=== PATIENT | male | born 1990 | race Caucasian/White ===

== ENCOUNTER 2017-02-22 08:49 | Emergency (ER) | payer OTHER ==
[~2017-02-22] VITALS: Ht 182.9 cm; Wt 77.1 kg
[~2017-02-22 08:49] MED LIST: ALBU90I INH; ALBU90OI INH; AZIT250 PO; CODGUAEL PO; Flexeril 10 mg10 MG PO; Inderal40 MG PO; METPRE4DP PO; Monodox100 MG PO; NAPR500 PO; Naprosyn500 MG PO; Norco 5-325 Ta1 EACH PO; OXYACE5T PO; PROM25 PO; Percocet 5-3251 EACH PO; SPACE CHAMBER1 EACH MC
[2017-02-22 09:50] LABS: BASOPHILS ABSOLUTE AUTO 0.02 K/mm3 (0.00-0.23); BASOPHILS PERCENT AUTO 0 % (0-2); EOSINOPHILS ABSOLUTE AUTO 0.05 K/mm3 (0.00-0.68); EOSINOPHILS PERCENT AUTO 1 % (0-6); Hematocrit 46.1 % (37.0-53.0); Hemoglobin 16.5 g/dL (13.5-17.5); IMMATURE GRAN ABSOLUTE AUTO 0.01 K/mm3 (0.00-0.10); IMMATURE GRAN PERCENT AUTO 0 % (0-1); LYMPHOCYTES ABSOLUTE AUTO 1.09 K/mm3 (0.84-5.20); LYMPHOCYTES PERCENT AUTO 10 % (21-46); MONOCYTES ABSOLUTE AUTO 0.93 K/mm3 (0.16-1.47); MONOCYTES PERCENT AUTO 8 % (4-13); Mean Corpuscular HGB 37.2 pg (26.0-34.0); Mean Corpuscular HGB Conc 35.8 g/dL (31.5-36.5); Mean Corpuscular Volume 104 fL (80-100); Mean Platelet Volume 11.2 fL (9.1-12.4); NEUTROPHILS ABSOLUTE AUTO 8.95 K/mm3 (1.96-9.15); NEUTROPHILS PERCENT AUTO 81 % (41-73); Platelet Count 181 K/mm3 (150-400); RDW Coefficient Variation 12.9 % (11.7-14.2); RDW Standard Deviation 49.2 fL (35.1-46.3); Red Blood Cell Count 4.43 M/mm3 (4.30-5.90); White Blood Cell Count 11.05 K/mm3 (4.00-11.30)
[2017-02-22 09:57] LABS: Alanine Aminotransfer (ALT/SGP 58 U/L (12-78); Albumin, Blood 3.5 g/dL (3.4-5.0); Albumin/Globulin Ratio 0.9 (0.8-1.8); Alk Phos 106 U/L (50-136); Anion Gap 7 mmol/L (6-16); Aspartate Aminotrans (AST/SGOT 47 U/L (12-37); Blood Urea Nitrogen 3 mg/dL (8-24); Bun/Creatinine Ratio 4.3 (12.0-20.0); CO2, Blood 32 mmol/L (21-32); Chloride, Blood 97 mmol/L (98-108); Creatinine, Blood 0.69 mg/dL (0.60-1.20); Globulin, Blood 3.8 g/dL (2.2-4.0); Glomerular Filtration Rate >60 (60-); Glucose, Blood 94 mg/dL (70-99); Sodium, Blood 136 mmol/L (136-145); Total Protein, Blood 7.3 g/dL (6.4-8.2)
[2017-02-22 10:07] LABS: Influenza A Negative (NEGATIVE); Influenza B Negative (NEGATIVE)
[2017-02-22] MEDS ORDERED: Zofran Odt4 MG PO (10:44)
== END 2017-02-22 11:05 | disposition home or self-care (01) ==
LOC: ER 08:49
PROVIDERS: Emergency Medicine
DX: E86.0 Dehydration (principal); E87.6 Hypokalemia; R11.2 Nausea with vomiting, unspecified; R19.7 Diarrhea, unspecified; J45.909 Unspecified asthma, uncomplicated; I10 Essential (primary) hypertension; F17.200 Nicotine dependence, unspecified, uncomplicated
CPT/HCPCS: 36415; 71020; 80053; 85025; 87804; 96361; 96374; 99283; J1100; J2405; J7030

== ENCOUNTER 2017-03-10 03:29 | Observation (INO) | payer OTHER ==
[~2017-03-10] VITALS: Ht 177.8 cm; Wt 59.0 kg
[~2017-03-10 03:29] MED LIST changes: +Zofran Odt4 MG PO
[2017-03-10 04:00] LABS: BASOPHILS ABSOLUTE AUTO 0.06 K/mm3 (0.00-0.23); BASOPHILS PERCENT AUTO 1 % (0-2); EOSINOPHILS ABSOLUTE AUTO 0.13 K/mm3 (0.00-0.68); EOSINOPHILS PERCENT AUTO 3 % (0-6); Hematocrit 51.3 % (37.0-53.0); Hemoglobin 18.4 g/dL (13.5-17.5); IMMATURE GRAN ABSOLUTE AUTO 0.01 K/mm3 (0.00-0.10); IMMATURE GRAN PERCENT AUTO 0 % (0-1); LYMPHOCYTES ABSOLUTE AUTO 1.91 K/mm3 (0.84-5.20); LYMPHOCYTES PERCENT AUTO 40 % (21-46); MONOCYTES ABSOLUTE AUTO 0.39 K/mm3 (0.16-1.47); MONOCYTES PERCENT AUTO 8 % (4-13); Mean Corpuscular HGB 38.3 pg (26.0-34.0); Mean Corpuscular HGB Conc 35.9 g/dL (31.5-36.5); Mean Corpuscular Volume 107 fL (80-100); Mean Platelet Volume 10.4 fL (9.1-12.4); NEUTROPHILS ABSOLUTE AUTO 2.31 K/mm3 (1.96-9.15); NEUTROPHILS PERCENT AUTO 48 % (41-73); Platelet Count 185 K/mm3 (150-400); RDW Coefficient Variation 14.6 % (11.7-14.2); RDW Standard Deviation 57.2 fL (35.1-46.3); Red Blood Cell Count 4.81 M/mm3 (4.30-5.90); White Blood Cell Count 4.81 K/mm3 (4.00-11.30)
[2017-03-10 04:39] LABS: Alanine Aminotransfer (ALT/SGP 125 U/L (12-78); Albumin, Blood 3.9 g/dL (3.4-5.0); Alk Phos 179 U/L (50-136); Anion Gap 12 mmol/L (6-16); Aspartate Aminotrans (AST/SGOT 270 U/L (12-37); Bilirubin, Total 1.7 mg/dL (0.1-1.0); Blood Urea Nitrogen 3 mg/dL (8-24); Bun/Creatinine Ratio 4.4 (12.0-20.0); CO2, Blood 21 mmol/L (21-32); Calcium, Blood 8.4 mg/dL (8.5-10.1); Chloride, Blood 105 mmol/L (98-108); Creatinine, Blood 0.68 mg/dL (0.60-1.20); Ethanol (Alcohol), Blood, Med 256 mg/dL; Glomerular Filtration Rate >60 (60-); Glucose, Blood 95 mg/dL (70-99); Potassium, Blood 4.2 mmol/L (3.5-5.5); Salicylate 2.6 mg/dL (2.8-20.0); Sodium, Blood 138 mmol/L (136-145); Total Protein, Blood 7.9 g/dL (6.4-8.2)
[2017-03-10 04:48] LABS: Acetaminophen, Random <2.0 ug/mL (10.0-30.0)
[2017-03-10] MEDS ORDERED: Zofran Odt4 MG PO (04:49)
[2017-03-10 05:20] LABS: Source, Urine Clean Catch
[2017-03-10 05:25] LABS: Blood, Urine 1+ (Neg); Glucose Qualitative, Urine Neg (Neg); Ketones, Urine 1+ (Neg); Leukocyte Esterase, Urine 1+ (Neg); Nitrite, Urine Neg (Neg); Protein, Urine 1+ (Neg); Specific Gravity, Urine 1.025 (1.003-1.022); Urobilinogen, Urine 2+ (Normal)
[2017-03-10 05:33] LABS: Appearance, Urine Hazy (Clear); Bilirubin, Urine 1+ (Neg); Color, Urine Amber (P-Yellow)
[2017-03-10 05:35] LABS: White Blood Cells, Urine 0-2 /hpf (0-5)
[2017-03-10 05:36] LABS: Bacteria Few /hpf; Red Blood Cells, Urine 0-2 /hpf (0-2); Squamous Epithelial Cells Few /hpf (Few)
[2017-03-10 05:45] LABS: U Amphetamine Screen Not Detected; U Barbituate Screen Not Detected; U Benzodiazapine Screen Not Detected; U Buprenorphine Screen Not Detected; U Cannabinoids Screen Not Detected; U Cocaine Screen Not Detected; U Methadone Screen Not Detected; U Methamphetamine Screen Not Detected; U Opiates Screen Not Detected; U Oxycodone Screen Not Detected; U Phencyclidine Screen Not Detected; U Propoxyphene Screen Not Detected
== END 2017-03-10 11:07 | disposition home or self-care (01) ==
LOC: ER 03:29 → EOR 03:30
PROVIDERS: Emergency Medicine
DX: F32.9 Major depressive disorder, single episode, unspecified (principal); R45.851 Suicidal ideations; F10.229 Alcohol dependence with intoxication, unspecified; Y90.8 Blood alcohol level of 240 mg/100 ml or more; F17.200 Nicotine dependence, unspecified, uncomplicated; J45.909 Unspecified asthma, uncomplicated; Z98.890 Other specified postprocedural states; Z79.899 Other long term (current) drug therapy
CPT/HCPCS: 36415; 80053; 81001; 84443; 85025; 87086; 99285; G0378; G0480

== ENCOUNTER 2017-03-14 21:48 | Observation (INO) | payer OTHER ==
[~2017-03-14] VITALS: Ht 170.2 cm; Wt 59.0 kg
[2017-03-15 00:59] LABS: BASOPHILS ABSOLUTE AUTO 0.04 K/mm3 (0.00-0.23); BASOPHILS PERCENT AUTO 1 % (0-2); EOSINOPHILS ABSOLUTE AUTO 0.07 K/mm3 (0.00-0.68); EOSINOPHILS PERCENT AUTO 2 % (0-6); Hematocrit 50.2 % (37.0-53.0); IMMATURE GRAN ABSOLUTE AUTO 0.01 K/mm3 (0.00-0.10); IMMATURE GRAN PERCENT AUTO 0 % (0-1); LYMPHOCYTES ABSOLUTE AUTO 1.48 K/mm3 (0.84-5.20); LYMPHOCYTES PERCENT AUTO 32 % (21-46); MONOCYTES ABSOLUTE AUTO 0.51 K/mm3 (0.16-1.47); MONOCYTES PERCENT AUTO 11 % (4-13); Mean Corpuscular HGB 38.2 pg (26.0-34.0); Mean Corpuscular HGB Conc 35.9 g/dL (31.5-36.5); Mean Corpuscular Volume 107 fL (80-100); Mean Platelet Volume 11.5 fL (9.1-12.4); NEUTROPHILS ABSOLUTE AUTO 2.55 K/mm3 (1.96-9.15); NEUTROPHILS PERCENT AUTO 55 % (41-73); Platelet Count 110 K/mm3 (150-400); RDW Coefficient Variation 13.5 % (11.7-14.2); RDW Standard Deviation 54.4 fL (35.1-46.3); Red Blood Cell Count 4.71 M/mm3 (4.30-5.90); White Blood Cell Count 4.66 K/mm3 (4.00-11.30)
[2017-03-15 01:17] LABS: Alanine Aminotransfer (ALT/SGP 174 U/L (12-78); Albumin, Blood 3.8 g/dL (3.4-5.0); Alk Phos 159 U/L (50-136); Anion Gap 12 mmol/L (6-16); Aspartate Aminotrans (AST/SGOT 314 U/L (12-37); Bilirubin, Total 2.6 mg/dL (0.1-1.0); Blood Urea Nitrogen 4 mg/dL (8-24); Bun/Creatinine Ratio 6.5 (12.0-20.0); CO2, Blood 25 mmol/L (21-32); Calcium, Blood 8.8 mg/dL (8.5-10.1); Chloride, Blood 102 mmol/L (98-108); Creatinine, Blood 0.61 mg/dL (0.60-1.20); Free Thyroxine 0.88 ng/dL (0.70-1.60); Glomerular Filtration Rate >60 (60-); Glucose, Blood 89 mg/dL (70-99); Potassium, Blood 3.9 mmol/L (3.5-5.5); Salicylate <1.7 mg/dL (2.8-20.0); Sodium, Blood 139 mmol/L (136-145); Total Protein, Blood 7.8 g/dL (6.4-8.2)
[2017-03-15 01:45] LABS: Ethanol (Alcohol), Blood, Med 344 mg/dL
[2017-03-15 01:46] LABS: Acetaminophen, Random <2.0 ug/mL (10.0-30.0)
== END 2017-03-15 15:38 | disposition home or self-care (01) ==
LOC: ER 21:48 → EOR 21:49
PROVIDERS: Emergency Medicine
DX: R45.851 Suicidal ideations (principal); F10.129 Alcohol abuse with intoxication, unspecified; I10 Essential (primary) hypertension; J45.909 Unspecified asthma, uncomplicated; J98.19 Other pulmonary collapse; F17.210 Nicotine dependence, cigarettes, uncomplicated; Y90.8 Blood alcohol level of 240 mg/100 ml or more
CPT/HCPCS: 36415; 80053; 84439; 84443; 85025; 99285; G0378; G0480

== ENCOUNTER 2017-03-31 12:48 | Inpatient (IN) | payer OTHER ==
[~2017-03-31] VITALS: Ht 167.6 cm; Wt 58.3 kg
[2017-03-31] MEDS ORDERED: Percocet 10-321 EACH PO (16:31)
[2017-03-31 17:26] LABS: BASOPHILS ABSOLUTE AUTO 0.07 K/mm3 (0.00-0.23); BASOPHILS PERCENT AUTO 1 % (0-2); EOSINOPHILS PERCENT AUTO 0 % (0-6); Hemoglobin 17.8 g/dL (13.5-17.5); IMMATURE GRAN ABSOLUTE AUTO 0.05 K/mm3 (0.00-0.10); IMMATURE GRAN PERCENT AUTO 1 % (0-1); LYMPHOCYTES ABSOLUTE AUTO 1.31 K/mm3 (0.84-5.20); LYMPHOCYTES PERCENT AUTO 15 % (21-46); MONOCYTES ABSOLUTE AUTO 0.75 K/mm3 (0.16-1.47); MONOCYTES PERCENT AUTO 8 % (4-13); Mean Corpuscular HGB 37.4 pg (26.0-34.0); Mean Corpuscular HGB Conc 34.9 g/dL (31.5-36.5); Mean Corpuscular Volume 107 fL (80-100); Mean Platelet Volume 10.4 fL (9.1-12.4); NEUTROPHILS ABSOLUTE AUTO 6.76 K/mm3 (1.96-9.15); NEUTROPHILS PERCENT AUTO 76 % (41-73); Platelet Count 234 K/mm3 (150-400); RDW Coefficient Variation 12.3 % (11.7-14.2); RDW Standard Deviation 49.7 fL (35.1-46.3); Red Blood Cell Count 4.76 M/mm3 (4.30-5.90); White Blood Cell Count 8.94 K/mm3 (4.00-11.30)
[2017-03-31 17:44] LABS: Anion Gap 14 mmol/L (6-16); Blood Urea Nitrogen 4 mg/dL (8-24); Bun/Creatinine Ratio 7.1 (12.0-20.0); CO2, Blood 21 mmol/L (21-32); Calcium, Blood 9.7 mg/dL (8.5-10.1); Chloride, Blood 100 mmol/L (98-108); Creatinine, Blood 0.57 mg/dL (0.60-1.20); Glomerular Filtration Rate >60 (60-); Glucose, Blood 92 mg/dL (70-99); Potassium, Blood 4.5 mmol/L (3.5-5.5); Sodium, Blood 135 mmol/L (136-145)
[2017-03-31 19:51] LABS: Ethanol (Alcohol), Blood, Med 95 mg/dL
[2017-03-31 20:03] LABS: International Normalized Ratio 1.03; Prothrombin Time Results 10.7 Sec (9.7-11.5)
[2017-04-01 00:01] LABS: Influenza A Negative (NEGATIVE); Influenza B Negative (NEGATIVE)
[2017-04-01 00:10] LABS: U Amphetamine Screen Not Detected; U Barbituate Screen Not Detected; U Benzodiazapine Screen Not Detected; U Buprenorphine Screen Not Detected; U Cannabinoids Screen DETECTED; U Cocaine Screen Not Detected; U Methadone Screen Not Detected; U Methamphetamine Screen Not Detected; U Opiates Screen DETECTED; U Oxycodone Screen DETECTED; U Phencyclidine Screen Not Detected; U Propoxyphene Screen Not Detected
[2017-04-01 03:44] LABS: Hematocrit 44.3 % (37.0-53.0); Hemoglobin 15.5 g/dL (13.5-17.5); Mean Corpuscular HGB 37.3 pg (26.0-34.0); Mean Corpuscular Volume 107 fL (80-100); Mean Platelet Volume 11.6 fL (9.1-12.4); Platelet Count 195 K/mm3 (150-400); RDW Coefficient Variation 12.5 % (11.7-14.2); RDW Standard Deviation 49.6 fL (35.1-46.3); Red Blood Cell Count 4.16 M/mm3 (4.30-5.90); White Blood Cell Count 9.86 K/mm3 (4.00-11.30)
[2017-04-01 04:36] LABS: BAND PERCENT MAN 7 % (0-8); BASOPHILS PERCENT MAN 0 % (0-2); EOSINOPHILS PERCENT MAN 0 % (0-6); LYMPHOCYTES ABSOLUTE MAN 0.09 K/mm3 (0.84-5.20); LYMPHOCYTES PERCENT MAN 1 % (21-46); MONOCYTES ABSOLUTE MAN 0.49 K/mm3 (0.16-1.47); MONOCYTES PERCENT MAN 5 % (4-13); NEUTROPHILS ABSOLUTE MAN 9.26 K/mm3 (1.96-9.15); SEG NEUTROPHILS PERCENT MAN 87 % (41-73); TOTAL CELLS COUNTED 100
[2017-04-03 05:32] LABS: BASOPHILS ABSOLUTE AUTO 0.05 K/mm3 (0.00-0.23); BASOPHILS PERCENT AUTO 1 % (0-2); EOSINOPHILS ABSOLUTE AUTO 0.04 K/mm3 (0.00-0.68); EOSINOPHILS PERCENT AUTO 1 % (0-6); Hematocrit 37.6 % (37.0-53.0); IMMATURE GRAN ABSOLUTE AUTO 0.02 K/mm3 (0.00-0.10); IMMATURE GRAN PERCENT AUTO 0 % (0-1); LYMPHOCYTES ABSOLUTE AUTO 0.62 K/mm3 (0.84-5.20); LYMPHOCYTES PERCENT AUTO 12 % (21-46); MONOCYTES ABSOLUTE AUTO 0.35 K/mm3 (0.16-1.47); MONOCYTES PERCENT AUTO 7 % (4-13); Mean Corpuscular HGB 36.9 pg (26.0-34.0); Mean Corpuscular HGB Conc 34.6 g/dL (31.5-36.5); Mean Corpuscular Volume 107 fL (80-100); Mean Platelet Volume 11.1 fL (9.1-12.4); NEUTROPHILS PERCENT AUTO 78 % (41-73); Platelet Count 127 K/mm3 (150-400); RDW Standard Deviation 47.2 fL (35.1-46.3); Red Blood Cell Count 3.52 M/mm3 (4.30-5.90); White Blood Cell Count 4.98 K/mm3 (4.00-11.30)
[2017-04-04] MEDS ORDERED: CYAFAPYR (11:36)
[2017-04-04] MEDS ORDERED: FAMO20 PO (11:36)
[2017-04-04] MEDS ORDERED: Roxicodone5 MG PO (11:38)
[2017-04-04] MEDS ORDERED: ALBU90OI6 INH (11:41)
[2017-04-04] MEDS ORDERED: DULERA 100 MCG/13 GM INH (11:43)
[2017-04-04] MEDS ORDERED: LEVFLO500 PO (11:43)
== END 2017-04-04 13:01 | disposition home or self-care (01) | DRG 189 ==
LOC: ER 12:48 → PCU 12:49 → MEDS 04-01 12:35 → PCU 04-01 12:35 → MEDS 04-01 15:29
PROVIDERS: Emergency Medicine; Family Medicine; Internal Medicine Critical Care Medicine
DX: J96.01 Acute respiratory failure with hypoxia (principal); J69.0 Pneumonitis due to inhalation of food and vomit; T17.590A Other foreign object in bronchus causing asphyxiation, initial encounter; J13 Pneumonia due to Streptococcus pneumoniae; J98.11 Atelectasis; J44.1 Chronic obstructive pulmonary disease with (acute) exacerbation; J44.9 Chronic obstructive pulmonary disease, unspecified; K76.0 Fatty (change of) liver, not elsewhere classified; S20.211A Contusion of right front wall of thorax, initial encounter; W19.XXXA Unspecified fall, initial encounter; F17.210 Nicotine dependence, cigarettes, uncomplicated; F10.11 Alcohol abuse, in remission
CPT/HCPCS: 36415; 71046; 71260; 80048; 82103; 82607; 82746; 85025; 85610; 85730; 87070; 87186; 87205; 87804; 94640; 94644; 94667; 94760; 94762; 96374; 96375; 99285; G0480; J0295; J1100; J1650; J2270; J2405; J2765; J7030; Q9967

== ENCOUNTER 2018-04-14 20:40 | Emergency (ER) | payer OTHER ==
[~2018-04-14] VITALS: Ht 167.6 cm; Wt 61.2 kg
[~2018-04-14 20:40] MED LIST changes: +ALBU90OI6 INH; +CYAFAPYR; +DULERA 100 MCG/13 GM INH; +FAMO20 PO; +LEVFLO500 PO; +Percocet 10-321 EACH PO; +Roxicodone5 MG PO
[2018-04-14 21:48] LABS: BASOPHILS ABSOLUTE AUTO 0.07 K/mm3 (0.00-0.23); BASOPHILS PERCENT AUTO 1 % (0-2); EOSINOPHILS ABSOLUTE AUTO 0.21 K/mm3 (0.00-0.68); EOSINOPHILS PERCENT AUTO 4 % (0-6); Hematocrit 47.1 % (37.0-53.0); Hemoglobin 16.2 g/dL (13.5-17.5); IMMATURE GRAN PERCENT AUTO 0 % (0-1); LYMPHOCYTES ABSOLUTE AUTO 2.69 K/mm3 (0.84-5.20); LYMPHOCYTES PERCENT AUTO 48 % (21-46); MONOCYTES ABSOLUTE AUTO 0.43 K/mm3 (0.16-1.47); MONOCYTES PERCENT AUTO 8 % (4-13); Mean Corpuscular HGB 35.1 pg (26.0-34.0); Mean Corpuscular HGB Conc 34.4 g/dL (31.5-36.5); Mean Corpuscular Volume 102 fL (80-100); NEUTROPHILS ABSOLUTE AUTO 2.18 K/mm3 (1.96-9.15); NEUTROPHILS PERCENT AUTO 39 % (41-73); Platelet Count 239 K/mm3 (150-400); RDW Coefficient Variation 12.3 % (11.7-14.2); RDW Standard Deviation 46.5 fL (35.1-46.3); Red Blood Cell Count 4.62 M/mm3 (4.30-5.90); White Blood Cell Count 5.58 K/mm3 (4.00-11.30)
[2018-04-14 22:11] LABS: Alanine Aminotransfer (ALT/SGP 22 U/L (12-78); Albumin, Blood 4.1 g/dL (3.4-5.0); Albumin/Globulin Ratio 1.1 (0.8-1.8); Alk Phos 134 U/L (50-136); Anion Gap 5 mmol/L (6-16); Aspartate Aminotrans (AST/SGOT 23 U/L (12-37); Bilirubin, Total 0.9 mg/dL (0.1-1.0); Blood Urea Nitrogen 3 mg/dL (8-24); Bun/Creatinine Ratio 5.2 (12.0-20.0); CO2, Blood 31 mmol/L (21-32); Calcium, Blood 8.5 mg/dL (8.5-10.1); Chloride, Blood 107 mmol/L (98-108); Creatinine, Blood 0.58 mg/dL (0.60-1.20); Globulin, Blood 3.6 g/dL (2.2-4.0); Glomerular Filtration Rate >60 (60-); Glucose, Blood 104 mg/dL (70-99); Potassium, Blood 3.7 mmol/L (3.5-5.5); Salicylate <1.7 mg/dL (2.8-20.0); Sodium, Blood 143 mmol/L (136-145); Total Protein, Blood 7.7 g/dL (6.4-8.2)
[2018-04-14 22:17] LABS: Ethanol (Alcohol), Blood, Med 300 mg/dL
[2018-04-14 22:21] LABS: Acetaminophen, Random <2.0 ug/mL (10.0-30.0)
[2018-04-14 22:30] LABS: U Amphetamine Screen Not Detected; U Barbituate Screen Not Detected; U Benzodiazapine Screen Not Detected; U Buprenorphine Screen Not Detected; U Cannabinoids Screen DETECTED; U Cocaine Screen Not Detected; U Methadone Screen Not Detected; U Methamphetamine Screen Not Detected; U Opiates Screen Not Detected; U Oxycodone Screen Not Detected; U Phencyclidine Screen Not Detected; U Propoxyphene Screen Not Detected
[2018-04-16] MEDS ORDERED: CYCL10 PO (19:18)
[2018-04-16] MEDS ORDERED: IBUP600 PO (19:18)
== END 2018-04-15 01:01 | disposition home or self-care (01) ==
LOC: ER 20:40
PROVIDERS: Physician Assistant
DX: F10.129 Alcohol abuse with intoxication, unspecified (principal); Y90.8 Blood alcohol level of 240 mg/100 ml or more; Z76.5 Malingerer [conscious simulation]; J45.909 Unspecified asthma, uncomplicated; I10 Essential (primary) hypertension; F17.210 Nicotine dependence, cigarettes, uncomplicated; Z79.899 Other long term (current) drug therapy
CPT/HCPCS: 36415; 80053; 85025; 99284; G0480; Q3014

== ENCOUNTER 2018-04-16 16:42 | Emergency (ER) | payer OTHER ==
[~2018-04-16] VITALS: Ht 165.1 cm; Wt 61.2 kg
[2018-04-16 17:58] LABS: BASOPHILS ABSOLUTE AUTO 0.06 K/mm3 (0.00-0.23); BASOPHILS PERCENT AUTO 1 % (0-2); EOSINOPHILS ABSOLUTE AUTO 0.23 K/mm3 (0.00-0.68); EOSINOPHILS PERCENT AUTO 4 % (0-6); Hematocrit 45.2 % (37.0-53.0); Hemoglobin 16.4 g/dL (13.5-17.5); IMMATURE GRAN ABSOLUTE AUTO 0.01 K/mm3 (0.00-0.10); IMMATURE GRAN PERCENT AUTO 0 % (0-1); LYMPHOCYTES PERCENT AUTO 34 % (21-46); MONOCYTES ABSOLUTE AUTO 0.69 K/mm3 (0.16-1.47); MONOCYTES PERCENT AUTO 11 % (4-13); Mean Corpuscular HGB 34.9 pg (26.0-34.0); Mean Corpuscular HGB Conc 36.3 g/dL (31.5-36.5); Mean Platelet Volume 9.9 fL (9.1-12.4); NEUTROPHILS ABSOLUTE AUTO 3.29 K/mm3 (1.96-9.15); NEUTROPHILS PERCENT AUTO 51 % (41-73); Platelet Count 236 K/mm3 (150-400); RDW Coefficient Variation 11.8 % (11.7-14.2); RDW Standard Deviation 41.4 fL (35.1-46.3); White Blood Cell Count 6.48 K/mm3 (4.00-11.30)
[2018-04-16 18:29] LABS: Alanine Aminotransfer (ALT/SGP 22 U/L (12-78); Albumin/Globulin Ratio 1.1 (0.8-1.8); Alk Phos 140 U/L (50-136); Anion Gap 12 mmol/L (6-16); Aspartate Aminotrans (AST/SGOT 25 U/L (12-37); Bilirubin, Total 1.8 mg/dL (0.1-1.0); Blood Urea Nitrogen 5 mg/dL (8-24); Bun/Creatinine Ratio 8.6 (12.0-20.0); CO2, Blood 26 mmol/L (21-32); Calcium, Blood 8.5 mg/dL (8.5-10.1); Chloride, Blood 96 mmol/L (98-108); Creatinine, Blood 0.58 mg/dL (0.60-1.20); Ethanol (Alcohol), Blood, Med 150 mg/dL; Globulin, Blood 3.5 g/dL (2.2-4.0); Glomerular Filtration Rate >60 (60-); Glucose, Blood 103 mg/dL (70-99); Potassium, Blood 3.2 mmol/L (3.5-5.5); Salicylate <1.7 mg/dL (2.8-20.0); Sodium, Blood 134 mmol/L (136-145); Total Protein, Blood 7.5 g/dL (6.4-8.2)
[2018-04-16 18:38] LABS: Acetaminophen, Random <2.0 ug/mL (10.0-30.0)
[2018-04-16 18:44] LABS: Mean Corpuscular Volume 96 fL (80-100)
[2018-04-16] MEDS ORDERED: IBUP600 PO (19:18)
[2018-04-16] MEDS ORDERED: CYCL10 PO (19:18)
== END 2018-04-16 19:58 | disposition home or self-care (01) ==
LOC: ER 16:42
PROVIDERS: Emergency Medicine
DX: M62.838 Other muscle spasm (principal); F10.129 Alcohol abuse with intoxication, unspecified; E87.6 Hypokalemia; I10 Essential (primary) hypertension; F17.210 Nicotine dependence, cigarettes, uncomplicated; Z79.899 Other long term (current) drug therapy
CPT/HCPCS: 36415; 71045; 73030; 80053; 84443; 85025; 99285-25; G0480; J1885; J7030

== ENCOUNTER 2018-05-29 19:41 | Inpatient (IN) | payer OTHER ==
[~2018-05-29] VITALS: Ht 172.7 cm; Wt 51.1 kg
[~2018-05-29 19:41] MED LIST changes: +CYCL10 PO; +IBUP600 PO
[2018-05-29 21:08] LABS: Source, Urine Clean Catch
[2018-05-29 21:12] LABS: Bilirubin, Urine Neg (Neg); Blood, Urine Neg (Neg); Glucose Qualitative, Urine Neg (Neg); Ketones, Urine Neg (Neg); Leukocyte Esterase, Urine Neg (Neg); Nitrite, Urine Neg (Neg); Protein, Urine Neg (Neg); Specific Gravity, Urine 1.005 (1.003-1.022); Urobilinogen, Urine NORM (Normal)
[2018-05-29 21:16] LABS: BASOPHILS ABSOLUTE AUTO 0.05 K/mm3 (0.00-0.23); BASOPHILS PERCENT AUTO 1 % (0-2); EOSINOPHILS ABSOLUTE AUTO 0.12 K/mm3 (0.00-0.68); EOSINOPHILS PERCENT AUTO 2 % (0-6); Hemoglobin 15.8 g/dL (13.5-17.5); IMMATURE GRAN ABSOLUTE AUTO 0.01 K/mm3 (0.00-0.10); IMMATURE GRAN PERCENT AUTO 0 % (0-1); LYMPHOCYTES ABSOLUTE AUTO 1.89 K/mm3 (0.84-5.20); LYMPHOCYTES PERCENT AUTO 37 % (21-46); MONOCYTES PERCENT AUTO 10 % (4-13); Mean Corpuscular HGB 34.6 pg (26.0-34.0); Mean Corpuscular HGB Conc 34.3 g/dL (31.5-36.5); Mean Corpuscular Volume 101 fL (80-100); Mean Platelet Volume 11.2 fL (9.1-12.4); NEUTROPHILS ABSOLUTE AUTO 2.61 K/mm3 (1.96-9.15); NEUTROPHILS PERCENT AUTO 50 % (41-73); Platelet Count 196 K/mm3 (150-400); RDW Coefficient Variation 12.3 % (11.7-14.2); RDW Standard Deviation 46.2 fL (35.1-46.3); Red Blood Cell Count 4.56 M/mm3 (4.30-5.90); White Blood Cell Count 5.18 K/mm3 (4.00-11.30)
[2018-05-29 21:22] LABS: Appearance, Urine Clear (Clear); Color, Urine Yellow (P-Yellow)
[2018-05-29 21:28] LABS: U Amphetamine Screen Not Detected; U Barbituate Screen Not Detected; U Benzodiazapine Screen Not Detected; U Buprenorphine Screen Not Detected; U Cannabinoids Screen Not Detected; U Cocaine Screen Not Detected; U Methadone Screen Not Detected; U Methamphetamine Screen Not Detected; U Opiates Screen Not Detected; U Oxycodone Screen Not Detected; U Phencyclidine Screen Not Detected; U Propoxyphene Screen Not Detected
[2018-05-29 21:38] LABS: Alanine Aminotransfer (ALT/SGP 24 U/L (12-78); Albumin, Blood 4.3 g/dL (3.4-5.0); Albumin/Globulin Ratio 1.3 (0.8-1.8); Alk Phos 107 U/L (50-136); Anion Gap 10 mmol/L (6-16); Aspartate Aminotrans (AST/SGOT 18 U/L (12-37); Bilirubin, Total 0.8 mg/dL (0.1-1.0); Blood Urea Nitrogen 2 mg/dL (8-24); CO2, Blood 21 mmol/L (21-32); Chloride, Blood 109 mmol/L (98-108); Creatinine, Blood 0.66 mg/dL (0.60-1.20); Ethanol (Alcohol), Blood, Med 46 mg/dL; Globulin, Blood 3.4 g/dL (2.2-4.0); Glomerular Filtration Rate >60 (60-); Glucose, Blood 102 mg/dL (70-99); Potassium, Blood 3.4 mmol/L (3.5-5.5); Salicylate 4.4 mg/dL (2.8-20.0); Sodium, Blood 140 mmol/L (136-145); Total Protein, Blood 7.7 g/dL (6.4-8.2)
[2018-05-29 22:03] LABS: Acetaminophen, Random <2.0 ug/mL (10.0-30.0)
--- NOTE | 2018-05-30 01:29 | NUR ---
ASSUMED PT CARE AT 2335 PT ARRIVED ON UNIT VIA STRETCHER; ABLE TO AMBULATE FROM STRETCHER TO BED WITH STANDBY ASSIST FOR STABILITY. PT ALERT AND ORIENTED TO PERSON, PLACE, TIME, AND SITUATION; FOLLOWING COMMANDS APPROPRIATELY. SLURRED SPEECH NOTED. PT DENIES ANY AUDITORY HALLUCINATIONS; HOWEVER, STATES HE IS "SEEING THINGS". WHEN ASKED TO ELABORATE WHAT HE IS SEEING HE STATES HE "CAN'T EXPLAIN IT." PT C/O DRY MOUTH. DENIES ANY NAUSEA. STATED HE DID VOID ON HIS OWN IN THE ED WITHOUT NEEDING TO BE CATHED. PT STATED HE MAY NEED TO GO SOON. REMOVED PT'S CLOTHING AND PLACED IN PAPER CLOTHES; ALL BELONGINGS REMOVED FROM ROOM. PT'S CIVIL RIGHTS WERE READ TO HIM AND PAPERWORK PLACED IN CHART. CALL PLACED TO DR. ALLRED AT 0008 IN REGARDS TO POISON CONTROLS RECOMMENDATIONS OF CHECKING A STAT MAGNESIUM LEVEL, WELL RECHECKING MAGNESIUM AND ASPIRIN LEVELS IN THE MORNING. ALSO RELAYED TO DR. ALLRED POISON CONTROLS RECOMMENDATIONS FOR KEEPING MAGNESIUM ABOVE 2.0 AND POTASSIUM ABOVE 4.0. NEW ORDERS TO REPLACE POTASSIUM WITH 40MEQ PO POTASSIUM LEVEL WAS 3.4. CALLED DR. ALLRED AT 0125 TO UPDATE REGARDING MAGNESIUM LAB OF 1.9; NEW ORDERS TO ADMINISTER 1GM MG IV. PT REMAINS IN NSR WITH HR 82; NO ECTOPI NOTED. PT IS SLEEPING IN BED WITH LIGHTS DIMMED TO DECREASE STIMULI. CALL LIGHT IN REACH.
--- NOTE | 2018-05-30 05:35 | NUR ---
POISON CONTROL UPDATE RECEIVED A CALL FROM SAM AT 0510. WANTED AN UPDATE ON PT'S MENTAL STATUS, QRS COMPEX, AND QT INTERVAL TIMING. NO FURTHER CONCERNS OR RECOMMENDATIONS GIVEN. STATED DAY SHIFT WILL FOLLOW UP LATER.
--- NOTE | 2018-05-30 05:54 | NUR ---
END OF SHIFT SUMMARY PT HAS REMAINED ALERT AND ORIENTED. ABLE TO ANSWER QUESTIONS APPROPRIATELY. CONTINUES WITH A SLIGHTLY SLURRED SPEECH, BUT ABLE TO STILL COMMUNICATE NEEDS. NO C/O OF VISUAL HALLUCINATIONS. PT HAS BEEN SLEEPING WELL SINCE ARRIVAL ON UNIT. CONTINUES TO C/O DRY MOUTH. URINATED ONCE WITH 600CC COUNTED. HAS REMAINED IN NSR WITH HR 80-90'S. VSS. CALL LIGHT IS WITHIN REACH. NO FAMILY AT BEDSIDE. PT REQUESTED THAT FAMILY NOT BE CONTACTED BECAUSE HE DIDN'T WANT TO BURDEN THEM WITH THE DRIVE DOWN THEIR MOUNTAIN TO GET TO TOWN.
[2018-05-30 06:31] LABS: BASOPHILS ABSOLUTE AUTO 0.05 K/mm3 (0.00-0.23); BASOPHILS PERCENT AUTO 1 % (0-2); EOSINOPHILS ABSOLUTE AUTO 0.18 K/mm3 (0.00-0.68); EOSINOPHILS PERCENT AUTO 3 % (0-6); Hematocrit 40.3 % (37.0-53.0); Hemoglobin 13.8 g/dL (13.5-17.5); IMMATURE GRAN ABSOLUTE AUTO 0.01 K/mm3 (0.00-0.10); IMMATURE GRAN PERCENT AUTO 0 % (0-1); LYMPHOCYTES ABSOLUTE AUTO 1.49 K/mm3 (0.84-5.20); LYMPHOCYTES PERCENT AUTO 24 % (21-46); MONOCYTES ABSOLUTE AUTO 0.63 K/mm3 (0.16-1.47); MONOCYTES PERCENT AUTO 10 % (4-13); Mean Corpuscular HGB 35.6 pg (26.0-34.0); Mean Corpuscular HGB Conc 34.2 g/dL (31.5-36.5); Mean Platelet Volume 11.1 fL (9.1-12.4); NEUTROPHILS ABSOLUTE AUTO 3.88 K/mm3 (1.96-9.15); NEUTROPHILS PERCENT AUTO 62 % (41-73); Platelet Count 157 K/mm3 (150-400); RDW Coefficient Variation 12.3 % (11.7-14.2); RDW Standard Deviation 46.9 fL (35.1-46.3); Red Blood Cell Count 3.88 M/mm3 (4.30-5.90); White Blood Cell Count 6.24 K/mm3 (4.00-11.30)
[2018-05-30 06:35] LABS: Mean Corpuscular Volume 104 fL (80-100)
[2018-05-30 06:48] LABS: Anion Gap 4 mmol/L (6-16); Blood Urea Nitrogen 4 mg/dL (8-24); Bun/Creatinine Ratio 5.2 (12.0-20.0); CO2, Blood 25 mmol/L (21-32); Calcium, Blood 8.4 mg/dL (8.5-10.1); Chloride, Blood 113 mmol/L (98-108); Creatinine, Blood 0.77 mg/dL (0.60-1.20); Glomerular Filtration Rate >60 (60-); Glucose, Blood 81 mg/dL (70-99); Magnesium, Blood 2.5 mg/dL (1.6-2.4); Potassium, Blood 4.4 mmol/L (3.5-5.5); Salicylate <1.7 mg/dL (2.8-20.0); Sodium, Blood 142 mmol/L (136-145)
--- NOTE | 2018-05-30 09:00 | NUR ---
POISON CONTROL CALLED PRIMARY NURSE TO GET UPDATE ON PATIENT STATUS. NO CHANGES. STATES THEY ARE SIGNING OFF AT THIS TIME.
--- NOTE | 2018-05-30 09:51 | NUR ---
TELEPSYCH CONSULT CALLED. APPOINTMENT WITH DR. SNOW AT 1115.
--- NOTE | 2018-05-30 10:21 | NUR ---
INITIAL ASSESSMENT PATIENT LAYING COMFORTABLY IN BED. AFEBRILE. VSS. NO COMPLAINTS OF PAIN AT THIS TIME. BED LOW. CALL LIGHT WITHIN REACH. APPOINTMENT SCHEDULED AT 1115 WITH TELEPSYCH. WILL CONTINUE TO MONITOR.
--- NOTE | 2018-05-30 11:23 | NUR ---
PATIENT ON COMPUTER CALL WITH TELEPSYCH AT THIS TIME. PATIENTS MOTHER IN LAW, LADONNA, CALLED TO GET UPDATE ON PATIENT. PATIENT ASKED IF OKAY TO GIVE HER INFORMATION AND HE STATED "YES THAT IS FINE. SHE WILL LET MY KNOW". MOTHER IN LAW UPDATED ON PATIENT. MOTHER IN LAW STATED THAT SHE FOUND OUT PATIENT WAS HERE "BECAUSE HE TOLD HIS DAUGHTER, MY GRAND-DAUGHTER, THAT IS 8 YEARS OLD, I AM GOING TO TAKE A BUNCH OF PILLS AND KILL MYSELF". MOTHER IN LAW ALSO STATED THAT PATIENT IS AN ALCOHOLIC AND NEEDS IN PATIENT PSYCHIATRIC HELP.
--- NOTE | 2018-05-30 11:48 | NUR ---
PATIENT LAYING QUIELTY IN BED. VSS. NO COMPLAINTS AT THIS TIME. BED LOW. CALL LIGHT WITHIN REACH. WILL CONTINUE TO MONITOR.
--- NOTE | 2018-05-30 19:08 | NUR ---
SHIFT SUMMARY PATIENT HAS REMAINED ALERT AND ORIENTED X4. FLAT AFFECT BUT COOPERATIVE. PATIENT IS AFEBRILE. PATIENT HAS HAD NO COMPLAINTS OF PAIN. PATIENT HAS NOT GOTTEN OUT OF BED THIS SHIFT. REMAINS SBA. PATIENT HAS REMAINED SATTING WELL ON RA. HAS REMAINED IN SR. HR AND BP ARE STABLE. GI/ WNL. NO CHANGES IN SKIN. SKIN WNL. IV IS SALINE LOCKED. PATIENT SAW TELEPSYCH TODAY AND DETERMINED TO NEED INPATIENT PSYCH TREATMENT. BED LOW. CALL LIGHT WITHIN REACH. WILL CONTINUE TO MONITOR.
--- NOTE | 2018-05-30 19:53 | NUR ---
ASSUMED PT CARE AT 1915 PT SLEEPING SOUNDLY. VSS. UPDATE FROM CHEF KITCHEN MANAGER THAT PT IS TRANSFERRING TO ROOM 351. WILL CALL FOR REPORT AND INFORM PATIENT OF TRANSFER.
--- NOTE | 2018-05-30 20:00 | NUR ---
Transfer report on 27 year old Male who has intentional injestion of around 50 tabs of 25 mg benadryl last evening and had been in ICU for intentional Suicide attempt. Iris COOK in ICU gives report and PT will be transferred to room 351 with camera monitoring as per suicide protocol. Had Tele Psych eval and says PT needs inpt Psych treatment. Discharge planing to Inpt Psych facility has begun. Await transfer.
--- NOTE | 2018-05-30 20:01 | NUR ---
REPORT GIVEN TO JOYCE KELLOGG. VALDEZ TO CALL WHEN ROOM IS READY FOR PATIENT.
--- NOTE | 2018-05-30 20:46 | NUR ---
TRANSFERRED UP TO ROOM 351. BELONGINGS SENT WITH. TRANSPORTED VIA WHEELCHAIR WITH TWO STAFF MEMBERS.
--- NOTE | 2018-05-30 21:33 | NUR ---
VANDANA CELESTE SPOKE WITH RN, JOSE, WHO ASKED ABOUT FAXING TELEPSYCH INFORMATION OVER. MAIL HANDLER SORTER FAXED PER THE NUMBER THAT WAS GIVEN. THEN JOSE WANTED A NURSE TO NURSE REPORT; SHE ASKED QUESTIONS REGARDING TOTAL BODY SYSTEMS, WELL PREVIOUS HISTORY; ALL INFORMATION GIVEN. THEN SHE ASKED FOR A PHYSICIAN NUMBER THAT THEIR PHYSICIAN COULD CALL AND DO THEIR REPORT. SHE STATED AFTER THE PHYSICIANS TALKED THEN A DECISION WOULD BE MADE REGARDING ADMISSION.
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
[2018-05-31] MEDS ORDERED: ALBU90OI6 INH (05:40)
--- NOTE | 2018-05-31 05:44 | NUR ---
PT continues under remote camera observation and is calm and cooperative. No attempts at self harm. resting quietly without complaints. Discussed discharge planning to inpt psych unit. PT denies acute distress. Not wearing SCDS due to risks from cords. He is on tele monitor and nsr [facility] pacs.
--- NOTE | 2018-05-31 10:15 | NUR ---
PATIENT HAD REQUESTED TO USE PHONE ABOUT 0930. CONDUIT HELPER STAYED AT DOOR WAY DIRECTLY OBSERVING PATIENT. PATIENT STS IS GOING TO CALL HIM BACK. PHONE TAKEN AWAY AND PATIENT ADVISED SHE CAN CALL CLOTH FINISHING RANGE OPERATOR CHIEF AND THEN THEY WILL LET US KNOW TO GET THE PHONE FOR YOU AGAIN. PATIENT WAS COOPERATIVE AT THAT TIME. PATIENT JUST TOLD CONDUIT HELPER THAT HIS HAS BEEN TRYING TO CALL HIM. THIS RN ADVISED HIM OF ABOVE AGAIN. PATIENT STS SHE "HAS BEEN TRYING TO CALL SINCE 10AM." ADVISED AGAIN OF ABOVE. PATIENT GETS UPSET AND STS "I DON'T WANT TO TALK TO YOU" AND STARTS MUMBLING "NAH,NAH,NAH......" WILL CONTINUE TO MONITOR.
--- NOTE | 2018-05-31 10:43 | NUR ---
CALLS BACK. PHONE BROUGHT INTO ROOM. INTERACTIVE DEVELOPER OBSERVING FROM DOORWAY.
--- NOTE | 2018-05-31 18:35 | NUR ---
PATIENT ALERT. SLEPT MOST OF DAY. RESPONDS VERY LITTLE TO QUESTIONS. TELE ON. CAMERA ON. NOT AGGRESSIVE. UNLABORED RESPIRATIONS. WILL CONTINUE TO MONITOR.
--- NOTE | 2018-06-01 01:34 | NUR ---
27 year old Male with intentional benadryl overdose continues on suicide precautions and has no attempts at self harm. Discussed plan to dc to inpt psych to treat depression and encouraged smoking and etoh cessation. hx of spontanous pneumothorax smoking since age [age]. Denies pain or acute distress. Calm and cooperative continues on remote camera observation at all times or line of sight to bathroom. Pt told Family and said he Mom said it's about time he recieved treatment for depression. Has 2 Children age 5 and 8. Discussed effect suicide has on survivors. Continue discharge planning potential acceptance at [facility] inpt psych unit.
--- NOTE | 2018-06-01 06:31 | NUR ---
continues to rest quietly with no behaviors. continues on remote camera monitor with line of sight by staff when up to bathroom. tolerating diet and cooperative with meds and no complaints. resp even and unlabored. Wheeze has resolved lung sounds coarse. smoking cessation encouraged. agrees to [facility] for 3rd suicide attempt. discharge planning continues to [facility] treatment center.
--- NOTE | 2018-06-01 07:26 | NUR ---
pt was observed by remote camera field evidence technician all shift as verified by this RN. I had several cals when PT accidently covered his head so he was cooperative with uncovering. Room temp increased and PT with no self harm attempts. Denies plan agreeable to treatment at [facility] psych unit
--- NOTE | 2018-06-01 07:29 | NUR ---
CONFIRMED WITH FINANCIAL SERVICES EDUCATION CONSULTANTSimbiosis CAMERA IN PT'S ROOM IS ON.
--- NOTE | 2018-06-01 10:24 | NUR ---
PT AMBULATES INDEPENDENTLY AND IS ABLE TO DO ADLS INDEPENEDENTLY. PT COOPERATIVE WITH CARE.
--- NOTE | 2018-06-01 16:52 | NUR ---
Sara was alone in room and quite subdued. He was pleasantly dismissive of conversation/visit. I will remain available.
--- NOTE | 2018-06-01 17:00 | NUR ---
PT D/C TO [facility] WITH SECURE TRANSPORT AT 1700 VIA WHEELCHAIR. IV AND TELE DC'D. PT'S BELONGINGS GIVEN TO SECURE PHARMACIST HELPER. REPORT CALLED TO JOYCE PHILLIP AT [facility].
== END 2018-06-01 17:02 | DRG 918 ==
LOC: ER 19:41 → ICUE 22:53 → MEDS 22:53 → ICUW 22:53 → ICUE 23:38 → MEDS 05-30 20:51 → ENPENDDIS 06-01 11:59 → MEDS 06-01 17:02
PROVIDERS: Emergency Medicine; ADMIT Internal Medicine
DX: T45.0X2A Poisoning by antiallergic and antiemetic drugs, intentional self-harm, initial encounter (principal); R45.851 Suicidal ideations; F32.9 Major depressive disorder, single episode, unspecified; F17.210 Nicotine dependence, cigarettes, uncomplicated; I10 Essential (primary) hypertension; J43.9 Emphysema, unspecified; K76.0 Fatty (change of) liver, not elsewhere classified; Z91.5 Personal history of self-harm
CPT/HCPCS: 36415; 80048; 80053; 81003; 83735; 84443; 85025; 93005; 93010; 96360; 96361; 99285-25; G0480; J1650; J3475; J7030; Q3014

== ENCOUNTER 2020-01-01 10:04 | Emergency (ER) | payer OTHER ==
[~2020-01-01] VITALS: Ht 170.2 cm; Wt 63.5 kg
[2020-01-01] MEDS ORDERED: IBUP800 PO (11:32)
== END 2020-01-01 11:59 | disposition home or self-care (01) ==
LOC: ER 10:04
DX: S63.502A Unspecified sprain of left wrist, initial encounter (principal); J43.9 Emphysema, unspecified; I10 Essential (primary) hypertension; F17.200 Nicotine dependence, unspecified, uncomplicated; Z79.899 Other long term (current) drug therapy; W10.9XXA Fall (on) (from) unspecified stairs and steps, initial encounter
CPT/HCPCS: 29125; 73110; 99283-25

== ENCOUNTER 2020-05-11 20:10 | Emergency (ER) | payer OTHER ==
[~2020-05-11] VITALS: Ht 167.6 cm; Wt 54.4 kg
[~2020-05-11 20:10] MED LIST changes: +IBUP800 PO
[2020-05-11 23:10] LABS: BASOPHILS ABSOLUTE AUTO 0.04 K/mm3 (0.00-0.23); BASOPHILS PERCENT AUTO 1 % (0-2); EOSINOPHILS ABSOLUTE AUTO 0.01 K/mm3 (0.00-0.68); EOSINOPHILS PERCENT AUTO 0 % (0-6); Hematocrit 41.1 % (37.0-53.0); Hemoglobin 14.7 g/dL (13.5-17.5); IMMATURE GRAN ABSOLUTE AUTO 0.02 K/mm3 (0.00-0.10); IMMATURE GRAN PERCENT AUTO 0 % (0-1); LYMPHOCYTES ABSOLUTE AUTO 0.52 K/mm3 (0.84-5.20); LYMPHOCYTES PERCENT AUTO 11 % (21-46); MONOCYTES ABSOLUTE AUTO 0.61 K/mm3 (0.16-1.47); MONOCYTES PERCENT AUTO 13 % (4-13); Mean Corpuscular HGB 36.1 pg (26.0-34.0); Mean Corpuscular HGB Conc 35.8 g/dL (31.5-36.5); Mean Corpuscular Volume 101 fL (80-100); Mean Platelet Volume 11.8 fL (9.1-12.4); NEUTROPHILS ABSOLUTE AUTO 3.61 K/mm3 (1.96-9.15); NEUTROPHILS PERCENT AUTO 75 % (41-73); Platelet Count 86 K/mm3 (150-400); RDW Coefficient Variation 12.5 % (11.7-14.2); RDW Standard Deviation 46.8 fL (35.1-46.3); Red Blood Cell Count 4.07 M/mm3 (4.30-5.90); White Blood Cell Count 4.81 K/mm3 (4.00-11.30)
[2020-05-11 23:21] LABS: Alanine Aminotransfer (ALT/SGP 214 U/L (12-78); Albumin, Blood 4.4 g/dL (3.4-5.0); Albumin/Globulin Ratio 1.2 (0.8-1.8); Alk Phos 99 U/L (50-136); Anion Gap 12 mmol/L (6-16); Aspartate Aminotrans (AST/SGOT 289 U/L (12-37); Bilirubin, Total 2.6 mg/dL (0.1-1.0); Blood Urea Nitrogen 8 mg/dL (8-24); Bun/Creatinine Ratio 14.2 (12.0-20.0); CO2, Blood 24 mmol/L (21-32); Calcium, Blood 9.7 mg/dL (8.5-10.1); Chloride, Blood 96 mmol/L (98-108); Creatinine, Blood 0.56 mg/dL (0.60-1.20); Ethanol (Alcohol), Blood, Med <3 mg/dL; Globulin, Blood 3.7 g/dL (2.2-4.0); Glomerular Filtration Rate >60 (60-); Glucose, Blood 126 mg/dL (70-99); Potassium, Blood 3.8 mmol/L (3.5-5.5); Sodium, Blood 132 mmol/L (136-145); Total Protein, Blood 8.1 g/dL (6.4-8.2)
[2020-05-11 23:29] LABS: Acetaminophen, Random <2.0 ug/mL (10.0-30.0)
== END 2020-05-11 23:53 | disposition home or self-care (01) ==
LOC: ER 20:10
PROVIDERS: Physician Assistant
DX: R56.9 Unspecified convulsions (principal); R55 Syncope and collapse; I10 Essential (primary) hypertension; J45.909 Unspecified asthma, uncomplicated; F17.210 Nicotine dependence, cigarettes, uncomplicated; Z79.899 Other long term (current) drug therapy
CPT/HCPCS: 36415; 80053; 85025; 93005; 93010; 99284-25; G0480

== ENCOUNTER → 2020-11-03 | Outpatient (CLI) | payer OTHER | END | disposition home or self-care (01) | LOC: LAB SHORT 19:01 → LAB 19:01 | DX: Z20.822 Contact with and (suspected) exposure to COVID-19 (principal) | CPT/HCPCS: U0003 ==

== ENCOUNTER 2022-03-08 14:53 | Emergency (ER) | payer OTHER ==
[~2022-03-08] VITALS: Ht 167.6 cm; Wt 56.7 kg
[2022-03-08 16:53] LABS: BASOPHILS ABSOLUTE AUTO 0.03 K/mm3 (0.00-0.23); BASOPHILS PERCENT AUTO 0 % (0-2); EOSINOPHILS ABSOLUTE AUTO 0.03 K/mm3 (0.00-0.68); EOSINOPHILS PERCENT AUTO 0 % (0-6); Hematocrit 41.7 % (37.0-53.0); IMMATURE GRAN ABSOLUTE AUTO 0.04 K/mm3 (0.00-0.10); IMMATURE GRAN PERCENT AUTO 0 % (0-1); LYMPHOCYTES ABSOLUTE AUTO 1.15 K/mm3 (0.84-5.20); LYMPHOCYTES PERCENT AUTO 11 % (21-46); MONOCYTES ABSOLUTE AUTO 0.75 K/mm3 (0.16-1.47); MONOCYTES PERCENT AUTO 7 % (4-13); Mean Corpuscular HGB 36.9 pg (26.0-34.0); Mean Corpuscular Volume 103 fL (80-100); Mean Platelet Volume 10.1 fL (9.1-12.4); NEUTROPHILS ABSOLUTE AUTO 8.78 K/mm3 (1.96-9.15); NEUTROPHILS PERCENT AUTO 81 % (41-73); Platelet Count 131 K/mm3 (150-400); RDW Coefficient Variation 11.7 % (11.7-14.2); RDW Standard Deviation 44.3 fL (35.1-46.3); Red Blood Cell Count 4.07 M/mm3 (4.30-5.90); White Blood Cell Count 10.78 K/mm3 (4.00-11.30)
[2022-03-08 17:08] LABS: Albumin, Blood 3.5 g/dL (3.4-5.0); Bilirubin, Total 3.4 mg/dL (0.1-1.0); Bun/Creatinine Ratio 6.8 (12.0-20.0); Calcium, Blood 9.5 mg/dL (8.5-10.1); Creatinine, Blood 0.59 mg/dL (0.60-1.20); Globulin, Blood 3.5 g/dL (2.2-4.0); Potassium, Blood 4.3 mmol/L (3.5-5.5)
[2022-03-08 18:24] LABS: U Amphetamine Screen Not Detected; U Barbituate Screen Not Detected; U Benzodiazapine Screen Not Detected; U Buprenorphine Screen Not Detected; U Cannabinoids Screen Not Detected; U Cocaine Screen Not Detected; U Methadone Screen Not Detected; U Methamphetamine Screen Not Detected; U Opiates Screen Not Detected; U Oxycodone Screen Not Detected; U Phencyclidine Screen Not Detected; U Propoxyphene Screen Not Detected
[2022-03-08] MEDS ORDERED: LEVE500 PO (18:42)
== END 2022-03-08 19:30 | disposition home or self-care (01) ==
LOC: ER 14:53
PROVIDERS: Emergency Medicine
DX: R56.9 Unspecified convulsions (principal); I10 Essential (primary) hypertension; F17.210 Nicotine dependence, cigarettes, uncomplicated
CPT/HCPCS: 36415; 70450; 80053; 85025; 93005; 93010; J1953

== ENCOUNTER → 2022-04-13 | Outpatient (CLI) | payer OTHER ==
[~2022-04-13] MED LIST changes: +LEVE500 PO
[2022-04-13 17:03] LABS: BASOPHILS ABSOLUTE AUTO 0.11 K/mm3 (0.00-0.23); BASOPHILS PERCENT AUTO 2 % (0-2); EOSINOPHILS ABSOLUTE AUTO 0.25 K/mm3 (0.00-0.68); EOSINOPHILS PERCENT AUTO 4 % (0-6); Hematocrit 40.3 % (37.0-53.0); Hemoglobin 14.6 g/dL (13.5-17.5); IMMATURE GRAN ABSOLUTE AUTO 0.01 K/mm3 (0.00-0.10); IMMATURE GRAN PERCENT AUTO 0 % (0-1); LYMPHOCYTES ABSOLUTE AUTO 3.37 K/mm3 (0.84-5.20); LYMPHOCYTES PERCENT AUTO 59 % (21-46); MONOCYTES ABSOLUTE AUTO 0.55 K/mm3 (0.16-1.47); MONOCYTES PERCENT AUTO 10 % (4-13); Mean Corpuscular HGB 38.9 pg (26.0-34.0); Mean Corpuscular HGB Conc 36.2 g/dL (31.5-36.5); Mean Corpuscular Volume 108 fL (80-100); Mean Platelet Volume 9.8 fL (9.1-12.4); NEUTROPHILS PERCENT AUTO 25 % (41-73); Platelet Count 203 K/mm3 (150-400); RDW Coefficient Variation 14.9 % (11.7-14.2); RDW Standard Deviation 59.4 fL (35.1-46.3); Red Blood Cell Count 3.75 M/mm3 (4.30-5.90); White Blood Cell Count 5.69 K/mm3 (4.00-11.30)
[2022-04-13 17:12] LABS: Albumin, Blood 3.5 g/dL (3.4-5.0); Bilirubin, Total 0.9 mg/dL (0.1-1.0); Bun/Creatinine Ratio 1.5 (12.0-20.0); Calcium, Blood 8.8 mg/dL (8.5-10.1); Creatinine, Blood 0.65 mg/dL (0.60-1.20); Globulin, Blood 3.6 g/dL (2.2-4.0); Potassium, Blood 2.8 mmol/L (3.5-5.5); Total Protein, Blood 7.1 g/dL (6.4-8.2)
== END | disposition home or self-care (01) ==
LOC: LAB 16:57 → LAB SHORT 16:57
PROVIDERS: Physician Assistant
DX: R60.9 Edema, unspecified (principal)
CPT/HCPCS: 80053; 82150; 85025

== ENCOUNTER 2023-03-16 17:35 | Emergency (ER) | payer OTHER ==
[~2023-03-16] VITALS: Ht 167.6 cm; Wt 59.0 kg
[~2023-03-16 17:35] MED LIST changes: +LEVETIRACETAM50014 PO; +METOPROLOL SUCC25 MG PO; +TRAZ50 PO
[2023-03-16 17:37] VITALS: BP 161/106
== END 2023-03-16 19:45 | disposition home or self-care (01) ==
LOC: ER 17:35
DX: S01.81XA Laceration without foreign body of other part of head, initial encounter (principal); F10.129 Alcohol abuse with intoxication, unspecified; F17.210 Nicotine dependence, cigarettes, uncomplicated; I10 Essential (primary) hypertension; J45.909 Unspecified asthma, uncomplicated; Z79.899 Other long term (current) drug therapy; W18.30XA Fall on same level, unspecified, initial encounter
CPT/HCPCS: 12001; 70450; 90471; 90714; 99283-25

== ENCOUNTER 2023-11-20 06:18 | Inpatient (IN) | payer OTHER ==
[2023-11-20] VITALS (14 sets, daily range): BP systolic 108–193; BP diastolic 82–181
[~2023-11-20] VITALS: Ht 177.8 cm; Wt 53.5 kg
[2023-11-20] MEDS ORDERED: NS 1,000 ML IV SCH ×2 (06:30→08:30)
[2023-11-20 06:41] LABS: BASOPHILS ABSOLUTE AUTO 0.06 K/mm3 (0.00-0.23); BASOPHILS PERCENT AUTO 1 % (0-2); EOSINOPHILS ABSOLUTE AUTO 0.03 K/mm3 (0.00-0.68); EOSINOPHILS PERCENT AUTO 0 % (0-6); Hematocrit 48.1 % (37.0-53.0); Hemoglobin 16.9 g/dL (13.5-17.5); IMMATURE GRAN ABSOLUTE AUTO 0.03 K/mm3 (0.00-0.10); IMMATURE GRAN PERCENT AUTO 0 % (0-1); LYMPHOCYTES PERCENT AUTO 15 % (21-46); MONOCYTES ABSOLUTE AUTO 0.95 K/mm3 (0.16-1.47); MONOCYTES PERCENT AUTO 9 % (4-13); Mean Corpuscular HGB 35.2 pg (26.0-34.0); Mean Corpuscular HGB Conc 35.1 g/dL (31.5-36.5); Mean Corpuscular Volume 100 fL (80-100); Mean Platelet Volume 9.9 fL (9.1-12.4); NEUTROPHILS ABSOLUTE AUTO 7.61 K/mm3 (1.96-9.15); NEUTROPHILS PERCENT AUTO 75 % (41-73); Platelet Count 160 K/mm3 (150-400); RDW Coefficient Variation 12.5 % (11.7-14.2); RDW Standard Deviation 46.8 fL (35.1-46.3); White Blood Cell Count 10.18 K/mm3 (4.00-11.30)
[2023-11-20 07:05] LABS: Ethanol (Alcohol), Blood, Med 99 mg/dL; Salicylate 4.1 mg/dL (2.8-20.0)
[2023-11-20 07:07] LABS: Acetaminophen, Random <2.0 ug/mL (10.0-30.0); Alanine Aminotransfer (ALT/SGP 23 U/L (12-78); Albumin, Blood 4.2 g/dL (3.4-5.0); Albumin/Globulin Ratio 1.2 (0.8-1.8); Alk Phos 109 U/L (50-136); Anion Gap 16 mmol/L (3-11); Aspartate Aminotrans (AST/SGOT 32 U/L (12-37); Bilirubin, Total 0.5 mg/dL (0.1-1.0); Blood Urea Nitrogen 7 mg/dL (8-24); Bun/Creatinine Ratio 10.1 (12.0-20.0); CO2, Blood 21 mmol/L (21-32); Calcium, Blood 9.8 mg/dL (8.5-10.1); Chloride, Blood 110 mmol/L (98-108); Creatinine, Blood 0.69 mg/dL (0.60-1.20); Globulin, Blood 3.6 g/dL (2.2-4.0); Glomerular Filtration Rate 124 (60-); Glucose, Blood 100 mg/dL (70-99); Potassium, Blood 3.6 mmol/L (3.5-5.5); Sodium, Blood 143 mmol/L (136-145); Total Protein, Blood 7.8 g/dL (6.4-8.2)
[2023-11-20] MEDS ORDERED: Magnesium Sulf 2 GM/Water 50ML 50 ML IV ONE ×2 (07:15→11:40)
[2023-11-20] MEDS ORDERED: LORazepam 2 MG/ML 1ML Injection IV ONE ×4 (07:20→20:10)
[2023-11-20 08:03] LABS: Source, Urine Clean Catch
[2023-11-20 08:22] LABS: Appearance, Urine Clear (Clear); Bilirubin, Urine Neg (Neg); Blood, Urine 2+ (Neg); Color, Urine Yellow (P-Yellow); Glucose Qualitative, Urine Neg (Neg); Ketones, Urine Neg (Neg); Leukocyte Esterase, Urine Neg (Neg); Nitrite, Urine Neg (Neg); Protein, Urine 2+ (Neg); Urobilinogen, Urine NORM (Normal)
[2023-11-20 08:37] LABS: White Blood Cells, Urine 0-2 /hpf (0-5)
[2023-11-20 08:38] LABS: Bacteria Rare /hpf; Hyaline Casts 0-2 /lpf (0-2); Mucus Light (0-Heavy); Squamous Epithelial Cells Rare /hpf (Few); U Amphetamine Screen Not Detected; U Barbituate Screen Not Detected; U Benzodiazapine Screen Not Detected; U Cocaine Screen Not Detected; U Methamphetamine Screen Not Detected
[2023-11-20 08:39] LABS: U Buprenorphine Screen Not Detected; U Cannabinoids Screen Not Detected; U Methadone Screen DETECTED; U Opiates Screen Not Detected; U Oxycodone Screen Not Detected; U Phencyclidine Screen Not Detected
[2023-11-20 10:21] LABS: Base Excess Venous -4.3 mmol/L; Bicarbonate Venous 21.8 mmol/L (24.0-30.0); PO2 Venous 196 mmHg (38-42); pH Blood Venous 7.41 (7.34-7.37)
[2023-11-20] MEDS ORDERED: Metoclopramide HCl 5MG / ML 2ML Vial IV ONE (11:20)
[2023-11-20] MEDS ORDERED: Sodium Bicarb 8.4% 1 MEQ/ML 50 ML Vial IV ONE (11:40)
[2023-11-20] MEDS ORDERED: Acetaminophen 325 MG TABLET PO PRN (12:00)
[2023-11-20] MEDS ORDERED: Acetaminophen 650 MG Supp PR PRN (12:00)
[2023-11-20] MEDS ORDERED: Lactated Ringer's 1,000 ML IV SCH (12:00)
[2023-11-20] MEDS ORDERED: LORazepam 2 MG/ML 1ML Injection IV PRN ×2 (12:00→20:10)
[2023-11-20] MEDS ORDERED: FLU VACC TS2024-25(6MOS UP)/PF 45 MCG/0.5 ML SYRINGE IM ONE (12:00)
[2023-11-20] MEDS ORDERED: Thiamine HCl 100 MG in NS 50 ML IV SCH (12:30)
[2023-11-20] MEDS ORDERED: Folic Acid 1 MG in NS 50 ML IV SCH (12:30)
[2023-11-20] MEDS ORDERED: CefTRIAXone Sodium 1,000 MG in NS 100 ML IV SCH (16:00)
--- NOTE | 2023-11-20 18:08 | NUR ---
SUMMARY PT ADMITTED TO ICU 16 FROM ER AT 1520. PT IS UNABLE TO ANSWER ANY QUESTIONS, MUMBLES INCOHERENTLY. CONSTANT JERKING TO EXTREMITIES AND NYSTAGMUS OF EYES. DOES NOT TOLERATE CARE WELL, WILL TRY TO GRAB STAFFS WRISTS AND JERKS AWAY. SEEMS PARANOID. TEMP HAS BEEN RISING SINCE ADMIT. NO COVERS ON, ICE PACKS APPLIED, TYLENOL WAS GIVEN, AND FAN ON PT. HAVE CALL OUT TO DR. ALLRED TO UPDATE. STARTED PRECEDEX TO TRY TO GET PT CALM ENOUGH FOR CARE.
[2023-11-20] MEDS ORDERED: Ketorolac Tromethamine 30mg Vial IV ONE (18:25)
--- NOTE | 2023-11-20 20:00 | NUR ---
ASSUMED CARE OF PT AT 1900. REPORT RECEIVED. PT PRESENTS IN BED. MOVING HIMSELF ABOUT FREQUENTLY. "PICKING" AT AIR. PT DOES NOT RESPOND TO QUESTIONS. IS RESISTANT TO CARE. DID OBTAIN A PCR - COVID SWAB WITH MUCH CALMING CONVERSATION. PT DOES TOLERATE THIS FAIRLY WELL. PRECEDEX DRIP AT 0.7 MCG'S/KG/HOUR. WILL INCREASE TO 1 MCG/KG/HOUR FOR INCREASED ANXIOUSNESS. WILL REVIEW CHART AND PLAN OF CARE FOR THIS PT.
[2023-11-20 20:43] LABS: Influenza A, PCR NEGATIVE (NEGATIVE); Influenza B, PCR NEGATIVE (NEGATIVE); Resp Syncytial Virus, PCR NEGATIVE (NEGATIVE); SARS-Cov-2 (COVID-19) PCR, MMC NEGATIVE (NEGATIVE)
[2023-11-20] MEDS ORDERED: Lactobacil 2-S.Thermo-Bifido 1 1 Cap PO SCH (21:00)
[2023-11-20 22:05] LABS: Source, Urine Foley catheter
[2023-11-20 22:10] LABS: Bilirubin, Urine Neg (Neg); Blood, Urine 2+ (Neg); Glucose Qualitative, Urine 2+ (Neg); Ketones, Urine 3+ (Neg); Leukocyte Esterase, Urine 1+ (Neg); Nitrite, Urine Neg (Neg); Protein, Urine 2+ (Neg); Urobilinogen, Urine NORM (Normal)
[2023-11-20 22:25] LABS: Appearance, Urine Hazy (Clear); Color, Urine Yellow (P-Yellow)
[2023-11-20 22:26] LABS: Amorphous Mod (0-Heavy); Bacteria Mod /hpf; Red Blood Cells, Urine 0-2 /hpf (0-2); Squamous Epithelial Cells Rare /hpf (Few); White Blood Cells, Urine 0-2 /hpf (0-5)
[2023-11-21] VITALS (24 sets, daily range): BP systolic 78–156; BP diastolic 42–102
--- NOTE | 2023-11-21 | NUR ---
PT ABLE TO SLEEP SOME AFTER INCREASE IN PRECEDEX. AGAIN, PT MOVES ABOUTIN BED FREQUENTLY. OF NOTE: UPON INITIAL ASSESSMENT OF PT NOTED DIFFUSE RAISED RASH TO LOWER EXTREMITIES. PT MAKES NO MOVEMENTS DIRECTED TOWARDS SCRATCHING AT THIS IF IT ITCHES. PT'S TEMPERATURE HAS BEEN IMPROVING. SEE VS FLOWSHEET FOR DETAILS.
[2023-11-21 03:43] LABS: Hematocrit 52.2 % (37.0-53.0); Hemoglobin 18.3 g/dL (13.5-17.5); Mean Corpuscular HGB 35.3 pg (26.0-34.0); Mean Corpuscular HGB Conc 35.1 g/dL (31.5-36.5); Mean Corpuscular Volume 101 fL (80-100); Mean Platelet Volume 10.6 fL (9.1-12.4); Platelet Count 142 K/mm3 (150-400); RDW Coefficient Variation 12.1 % (11.7-14.2); RDW Standard Deviation 45.7 fL (35.1-46.3); Red Blood Cell Count 5.19 M/mm3 (4.30-5.90); White Blood Cell Count 11.78 K/mm3 (4.00-11.30)
[2023-11-21 04:21] LABS: BAND PERCENT MAN 20 % (0-8); BASOPHILS PERCENT MAN 0 % (0-2); EOSINOPHILS ABSOLUTE MAN 0.23 K/mm3 (0.00-0.68); EOSINOPHILS PERCENT MAN 2 % (0-6); LYMPHOCYTES ABSOLUTE MAN 0.82 K/mm3 (0.84-5.20); LYMPHOCYTES PERCENT MAN 7 % (21-46); METAMYELOCYTE ABSOLUTE MAN 0.11 K/mm3 (0.00-0.00); METAMYELOCYTE PERCENT MAN 1 % (0-0); MONOCYTES ABSOLUTE MAN 1.06 K/mm3 (0.16-1.47); MONOCYTES PERCENT MAN 9 % (4-13); NEUTROPHILS ABSOLUTE MAN 9.54 K/mm3 (1.96-9.15); SEG NEUTROPHILS PERCENT MAN 61 % (41-73); TOTAL CELLS COUNTED 100
[2023-11-21 05:19] LABS: Calcium, Blood 8.7 mg/dL (8.5-10.1); Creatinine, Blood 0.58 mg/dL (0.60-1.20); Potassium, Blood 4.2 mmol/L (3.5-5.5)
--- NOTE | 2023-11-21 05:25 | NUR ---
HAVE BROUGHT PRECEDEX DRIP DOWN TO 0.8 MCG'S/KG/HOUR AND WILL CONSIDER FURTHER LOWERING TITRATIONS PT PROVES THIS IS BENIFICIAL. PHOTO HAS BEEN TAKEN OF RASH ON LEGS. THIS PLACED IN CHART. PT REMAINS WITHOUT BEING ABLE TO FOLLOW COMMANDS OR PARTICIPATE IN CONVERSATIONS. EVEN WITH THIS, PT HAS HAD SOME CLEARING OF MENTATION THAT IS NOTABLE. WILL CONTINUE TO MONITOR, AND WILL REPORT OFF TO ONCOMING RN.
[2023-11-21] MEDS ORDERED: Lactated Ringer's 1,000 ML IV ONE (08:25)
[2023-11-21] MEDS ORDERED: Lactated Ringer's 1,000 ML IV SCH (08:25)
[2023-11-21] MEDS ORDERED: Enoxaparin 40 MG/0.4 ML SYR SC SCH (09:00)
[2023-11-21] MEDS ORDERED: Nicotine 14 MG PATCH TOP SCH (09:00)
[2023-11-21] MEDS ORDERED: Folic Acid 1 MG TAB PO SCH (10:00)
[2023-11-21] MEDS ORDERED: Thiamine HCl 100 MG Tab PO SCH (10:00)
[2023-11-21] MEDS ORDERED: Doxycycline Hyclate 100 MG TAB PO SCH (10:00)
--- NOTE | 2023-11-21 17:58 | NUR ---
SUMMARY PT A/O TO PERSON, PLACE, MONTH AND YEAR. SPEECH IS MORE CLEAR. FOLLOWING COMMANDS AND COOPERATIVE WITH CARE. GOT A BOLUS TODAY AND IVF INCREASED TO 150ML/HR. CK IS COMING DOWN, URINE IS ORANGE. EVALUATED BY DR. PAVON TODAY. NOT SUICIDAL BUT DOES HAVE FLAT AFFECT. DRINKING A LITTLE WATER BUT NOT EATING FOOD. NO SIGN OF DISTRESS. MEDICAL STATUS.
--- NOTE | 2023-11-21 19:40 | NUR ---
ASSUMED CARE OF PT AT 1900. REPORT RECEIVED. PT PRESENTS IN BED. ALERT AND IS ABLE TO COMMUNICATE WITH THIS RN. MENTATION MARKEDLY IMPROVED SINCE THIS AM WHEN THIS RN WAS IN CARE OF THIS PT. PT CALM. OFF PRECEDEX DRIP. WILL REVIEW CHART AND PLAN OF CARE FOR THIS PT.
[2023-11-21] MEDS ORDERED: QUEtiapine Fumarate 50 MG TAB PO SCH (21:00)
--- NOTE | 2023-11-21 22:41 | NUR ---
NOTED PT HAS BECOME TACHYCARDIC WITH RATES 120'S. PT SLEEPING IN NO APPARENT DISTRESS. DID ADMINISTER 1 MG ATIVAN PRECURSOR FOR POSSIBLE ETOH W/D'S NO CHANGE NOTED. PT AFEBRILE AT THIS TIME AFTER TYLENOL GIVEN. WILL CONTINUE TO MONITOR.
[2023-11-22] VITALS (8 sets, daily range): BP systolic 98–145; BP diastolic 66–96
[2023-11-22 03:58] LABS: Bun/Creatinine Ratio 9.7 (12.0-20.0); Calcium, Blood 8.2 mg/dL (8.5-10.1); Creatinine, Blood 0.62 mg/dL (0.60-1.20); Potassium, Blood 3.4 mmol/L (3.5-5.5)
--- NOTE | 2023-11-22 05:17 | NUR ---
HAVE REMOVED SARAH CATHETER EARLIER IN SHIFT. PT HAS VOIDED SINCE. NOTED THAT THE BODY RASH IS NEARLY RESOLVED. PT MOVES ABOUT BED ON HIS OWN. HAS BEEN ABLE TO SLEEP THIS NIGHT. NO NEED FOR ATIVAN EXCEPT FOR ONCE THIS SHIFT. PT'S CIWA SCORING HAS REMAINED LOW. WILL CONTINUE TO MONITOR, AND WILL REPORT OFF TO ONCOMING RN.
--- NOTE | 2023-11-22 07:00 | NUR ---
ASSUMPTION OF CARE PT WAKENS TO VERBAL STIMULI, PARTICIPATES IN CONVERSATION. A&OX3. HE IS ON RA WITH SPO2 >95%. SINUS ON MONITOR WITH RATE IN 80S-90S. MAP >65. URINAL AT BEDSIDE. BED IN LOW POSITION, CALL LIGHT WITHIN REACH.
[2023-11-22] MEDS ORDERED: Potassium Chloride 20 MEQ TabCR PO ONE (07:30)
[2023-11-22] MEDS ORDERED: LORazepam 2 MG/ML 1ML Injection IV PRN (09:30)
[2023-11-22] MEDS ORDERED: ChlordiazePOXIDE 25 MG Cap PO PRN (09:35)
--- NOTE | 2023-11-22 17:21 | NUR ---
SHIFT SUMMARY PT IS A&OX3. HAS DIFFICULTY REMEMBERING THE YEAR AND WHY HE IS IN THE HOSPITAL. PROVIDED REORIENTATION THROUGHOUT THE DAY. PT REPORTS AUDITORY AND VISUAL HALLUCINATIONS AND MEDICATED PER EMAR. PT REPORTS MORE RELIEF WITH LIBRIUM THAN ATIVAN. LAST CIWA SCORE 8. PT SOMEWHAT WITHDRAWN BUT WILL ANSWER QUESTIONS AND PARTICIPATE IN CONVERSATION. SINUS ON THE MONITOR, MOSTLY 70S-80S, INCREASES TO 110S-140S WITH EXERTION. BP STABLE THROUGHOUT THE DAY. PT TOLERATING PO FLUIDS WELL BUT HAS DECREASED APPETITE. PT HAS VOIDED SEVERAL TIMES THROUGHOUT THE DAY. BED IN LOW POSITION, CALL LIGHT WITHIN REACH.
[2023-11-22] MEDS ORDERED: QUEtiapine Fumarate 100 MG Tab PO SCH (21:00)
[2023-11-22] MEDS ORDERED: Ondansetron HCl 2 MG / ML 2ML Vial IV PRN (21:20)
--- NOTE | 2023-11-22 21:51 | NUR ---
ASSUMPTION OF CARE ASSUMED CARE OF PATIENT AT 1900, BEDSIDE SHIFT REPORT RECEIVED FROM CARRINGTON RN. PT RESTING IN BED, SLEEPING BUT AROUSABLE. PT STATES THAT HE PERIODICALLY HAS VISUAL/AUDITORY HALLUCINATIONS, DENIES ANY AT TIME OF ASSESSMNET. CIWA 14, MEDICATED PER EMAR. PT ANSWERS QUESTIONS APPROPRIATELY, FOLLOWS DIRECTION WHEN PROMPTED AND IS ABLE TO MAKE HIS NEEDS KNOWN. PT MOVES EXTREMITIES EQUALLY BILATERALLY. HR 100-110'S SINUS, MAP >65. PT PLACED ON 2L NC WHILE SLEEPING, OXYGEN SATURATION >95%. ABDOMEN SOFT, TENDER ON PALPATION. BOWEL TONES ACTIVE IN ALL FOUR QUADRANTS. PT NAUSEOUS, MEDICATED PER EMAR. PT USES URINAL TO VOID. PIV IN PLACE TO RAC AND RFA. BED IN LOWEST POSITION, CALL LIGHT WITHIN REACH, CARE CONTINUES.
[2023-11-23] VITALS: BP 116/60
[2023-11-23 04:00] VITALS: BP 93/74
[2023-11-23 04:11] LABS: Bun/Creatinine Ratio 7.3 (12.0-20.0); Calcium, Blood 8.8 mg/dL (8.5-10.1); Creatinine, Blood 0.55 mg/dL (0.60-1.20); Magnesium, Blood 1.4 mg/dL (1.6-2.4); Potassium, Blood 3.2 mmol/L (3.5-5.5)
[2023-11-23] MEDS ORDERED: Mag Sulfate 1 GM/D5% 100ML 100 ML IV ONE (04:25)
[2023-11-23] MEDS ORDERED: Potassium Chloride 20 MEQ TabCR PO ONE ×3 (04:25→08:25)
--- NOTE | 2023-11-23 05:10 | NUR ---
SHIFT SUMMARY NO ACUTE CHANGES THIS SHIFT, PT CONTINUES TO REST IN BED, SLEEPING BUT AROUSABLE. PT ANSWERS QUESTIONS APPROPRIATELY, FOLLOWS DIRECTION WEFELICITAS PROMPTED AND IS ABLE TO MAKE HIS NEEDS KNOWN. CIWA 3-14, MEDICATED PER EMAR. PT STATES THAT HE HAS PREVIOUSLY HAD VISUAL AND AUDITORY HALLUCINATIONS, HE HAS DENIED ANY THIS SHIFT. HR 100-140'S SINUS, PT HR INCREASES WITH EXERTION, MAP >65. PT ON 2L NC WHILE SLEEPING, OXYGEN SATURATION >95%. ABDOMEN SOFT, TENDER ON PALPATION, BOWEL TONES ACTIVE THROUGHOUT. PT HAS HAD PERIODS OF NAUSEA THIS SHIFT, MEDICATED PER EMAR. PT USES URINAL TO VOID. PIV IN PLACE TO RAC AND RFA SL. BED IN LOWEST POSITON, CALL LIGHT WITHIN REACH, CARE CONTINUES.
--- NOTE | 2023-11-23 07:00 | NUR ---
ASSUME CARE: I have assumed care of this patient.
[2023-11-23] MEDS ORDERED: Mag Sulfate 1 GM/D5% 100ML 100 ML IV STA (07:51)
[2023-11-23 08:00] VITALS: BP 104/69
[2023-11-23 11:47] VITALS: BP 121/82
--- NOTE | 2023-11-23 18:43 | NUR ---
SHIFT SUMMARY: Pt plesant and cooperative throughout the day. He is ambulatory with standby assist due to dizziness. Pt up to shower today. Abdominal ultrasound ordered as pt reports concern for liver damage he has been drinking since he was 13 years old. CIWAs 3-6 this shift. Exwife given phone update with pt's permission.
[2023-11-23 19:58] VITALS: BP 124/87
[2023-11-23 20:03] VITALS: BP 124/87
--- NOTE | 2023-11-23 20:33 | NUR ---
ASSUMPTION OF CARE ASSUMED CARE OF PATIENT AT 1900, BEDSIDE SHIFT REPORT RECEIVED FROM CARRINGTON RN. PT RESTING IN BED, ALERT AND ORIENTED X4. PT ANSWERS QUESTIONS APPROPRIATELY, FOLLOWS DIRECTION WHEN PROMPTED AND IS ABLE TO MAKE HIS NEEDS KNOWN. PT CIWA 8 ON ASSESSMENT, MEDICATED PER EMAR. PT DENIES VISUAL/AUDITORY HALLUCINATIONS AT TIME OF ASSESSMENT, STATES THAT HE WAS HAVING SOME EARLIER IN THE DAY. PT DENIES CP/PRESSURE ALSO DENIES SOB. PT ON RA, OXYGEN SATURATION >95% ON SPOT CHECK. ABDOMEN SOFT, BOWEL TONES ACTIVE IN ALL FOUR QUADRANTS. PT USES URINAL TO VOID. PIV IN PLACE TO RAC AND RFA SL. BED IN LOWEST POSITION, CALL LIGHT WITHIN REACH. CARE CONTINUES.
--- NOTE | 2023-11-24 00:15 | NUR ---
TRANSFER TO MEDICAL FLOOR REPORT GIVEN TO MEDICAL FLOOR. PT TRANSFERED TO MEDICAL FLOOR VIA WHEELCHAIR. PT ALERT AND ORIENTED ON TRANSFER, PT BELONGINGS TRANSFERED WITH PT.
[2023-11-24 00:23] VITALS: BP 107/66
[2023-11-24 05:38] LABS: Bun/Creatinine Ratio 11.9 (12.0-20.0); Calcium, Blood 9.2 mg/dL (8.5-10.1); Creatinine, Blood 0.59 mg/dL (0.60-1.20); Magnesium, Blood 1.8 mg/dL (1.6-2.4); Potassium, Blood 3.5 mmol/L (3.5-5.5)
[2023-11-24 06:08] VITALS: BP 98/65
--- NOTE | 2023-11-24 06:29 | NUR ---
SHIFT SUMMARY: Pt is admitted for altered mental status and is a full code. Is alert and able to make needs known. ADLs have been SBA. stated that he had some mild pain to left shoulder but did not want anything for it.shortly after coming to the floor from ICU he was resting and was in the state through most of the rest of the shift.
[2023-11-24 07:51] VITALS: BP 112/69
[2023-11-24] MEDS ORDERED: Doxycycline150 MG PO (11:05)
[2023-11-24] MEDS ORDERED: Nicoderm Cq1 EAC1 TOP (11:05)
[2023-11-24] MEDS ORDERED: QUET100 PO (11:06)
--- NOTE | 2023-11-24 12:52 | NUR ---
DISCHARGE NOTE: THIS PRIMARY RN WAS AT LUNCH AT TIME OF PT DISCHARGE. PT IS AT THE DOOR WAITING FOR TRANSPORTATION HOME. PT WAS NOTIFIED THAT THE RIDE SERVICE IS RUNNING BEHIND AND IS SCHEDULED TO ARRIVE IN APPROX 20 MINUTES. THIS RN OFFERED PT SODA. PT DENIED ANY NEEDS OR QUESTIONS AT THIS TIME.
== END 2023-11-24 12:10 | disposition home or self-care (01) | DRG 871 ==
LOC: ER 06:18 → ICUE 11:56 → MEDS 11-24 00:15
PROVIDERS: Internal Medicine; Student in an Organized Health Care Education/Training Program; ADMIT Family Medicine
DX: A41.9 Sepsis, unspecified organism (principal); G92.8 Other toxic encephalopathy; M62.82 Rhabdomyolysis; E87.3 Alkalosis; J45.909 Unspecified asthma, uncomplicated; R65.20 Severe sepsis without septic shock; I10 Essential (primary) hypertension; G89.29 Other chronic pain; M54.9 Dorsalgia, unspecified; F32.A Depression, unspecified; F10.20 Alcohol dependence, uncomplicated; E87.6 Hypokalemia; E83.42 Hypomagnesemia; Z28.21 Immunization not carried out because of patient refusal; K76.0 Fatty (change of) liver, not elsewhere classified; F17.210 Nicotine dependence, cigarettes, uncomplicated; F10.229 Alcohol dependence with intoxication, unspecified; R94.31 Abnormal electrocardiogram [ECG] [EKG]; R33.9 Retention of urine, unspecified
CPT/HCPCS: 0241U; 36415; 51702; 51798; 71045; 76705; 80048; 80053; 80320; 81001; 82140; 82550; 82803; 83605; 83735; 84145; 85025; 87040; 87086; 93005; 93010; 96361-59; 96365-59; 96375-59; 96376-59; 99285-25; A9270; G0480; J0696; J1650; J1885; J2060; J2405; J2765; J3411; J3475; J7030; J7050; J7120

== ENCOUNTER 2024-07-04 14:31 | Emergency (ER) | payer OTHER ==
[~2024-07-04] VITALS: Ht 167.6 cm; Wt 54.4 kg
[~2024-07-04 14:31] MED LIST changes: +B-1100 MG PO; +Doxycycline150 MG PO; +Nicoderm Cq1 EAC1 TOP; +QUET100 PO
[2024-07-04 14:35] VITALS: BP 127/99
[2024-07-04] MEDS ORDERED: IBUP200 PO (14:37)
[2024-07-04] MEDS ORDERED: Ketorolac Tromethamine 30mg Vial IM ONE (16:30)
[2024-07-04] MEDS ORDERED: Lidocaine 4% 1 Patch TOP ONE (16:30)
== END 2024-07-04 17:00 | disposition home or self-care (01) ==
LOC: ER 14:31
DX: S39.012A Strain of muscle, fascia and tendon of lower back, initial encounter (principal); G89.29 Other chronic pain; J45.909 Unspecified asthma, uncomplicated; I10 Essential (primary) hypertension; F17.210 Nicotine dependence, cigarettes, uncomplicated; Z88.1 Allergy status to other antibiotic agents; X58.XXXA Exposure to other specified factors, initial encounter
CPT/HCPCS: 96372; 99283-25; A9270; J1885